=== PATIENT | female | born 1985 | race Caucasian/White ===

== ENCOUNTER 2018-06-14 03:01 | Emergency (ER) | payer SELFPAY ==
[~2018-06-14] VITALS: Ht 167.6 cm; Wt 63.5 kg
== END 2018-06-14 04:05 | disposition home or self-care (01) ==
LOC: ER 03:01
DX: S60.211A Contusion of right wrist, initial encounter (principal); W17.89XA Other fall from one level to another, initial encounter; Z91.030 Bee allergy status; F17.200 Nicotine dependence, unspecified, uncomplicated
CPT/HCPCS: 29125; 73110; 99283-25